=== PATIENT | female | born 2005 | race Caucasian/White ===

== ENCOUNTER 2025-03-15 14:50 | Emergency (ER) | payer OTHER ==
[2025-03-15] MEDS: Lidocaine 1% with EPINEPHrine 1:100,000 20 ML MDV INJECT ONE (15:47)
[2025-03-15] MEDS: Bacitracin Oint 1 GM U/D Packet TOP ONE (16:24)
[2025-03-15] MEDS: Diphtheria,Pertussis(Acell),Tetanus Vaccine 0.5 ML Syringe IM ONE (16:24)
== END 2025-03-15 16:39 | disposition home or self-care (01) ==
LOC: JP.ED 14:50
DX: S71.111A Laceration without foreign body, right thigh, initial encounter (principal); Z88.0 Allergy status to penicillin; Z23 Encounter for immunization; V86.56XA Driver of dirt bike or motor/cross bike injured in nontraffic accident, initial encounter
CPT/HCPCS: 12002; 90471; 90715; 99282; J2004